=== PATIENT | female | born 1965 | race Two or more races ===

== ENCOUNTER 2016-11-25 13:36 | Emergency (ER) | payer SELFPAY ==
[2016-11-25] MEDS ORDERED: CLONIDINE HCL 0.1 MG TABLET PO ONE (14:04)
[2016-11-25] MEDS ORDERED: ONDANSETRON 4 MG TAB.RAPDIS PO ONE (14:04)
--- NOTE | 2016-11-25 14:04 | ER Document Report ---
ED Medical Screen (RME) - General Chief Complaint: Headache Stated Complaint: HEADACHE Time Seen by Provider: 11/25/16 14:03 Notes: Patient says that she has had a headache since 3 AM this morning. It awakened her from sleep. She had some sudden dizziness as well. Since then she has had nausea and is vomited about 20 times. Patient has a history of high blood pressure, but has been out of her medications for over a month. TRAVEL OUTSIDE OF THE U.S. IN LAST 30 DAYS: No - Related Data Allergies/Adverse Reactions: No Known Allergies Allergy (Unverified 11/25/16 13:45) Past Medical History - Social History Chew tobacco use (# tins/day): No Frequency of alcohol use: None Drug Abuse: None - Past Medical History Cardiac Medical History: Reports: Hx Hypertension Renal/ Medical History: Denies: Hx Peritoneal Dialysis Past Surgical History: Reports: Hx Appendectomy Physical Exam - Vital signs Vitals: Temp Pulse Resp BP Pulse Ox 99.2 F 100 18 153/103 H 98 11/25/16 13:45 11/25/16 13:45 11/25/16 13:45 11/25/16 13:45 11/25/16 13:45 Course - Vital Signs Vital signs: Temp Pulse Resp BP Pulse Ox 99.2 F 100 18 153/103 H 98 11/25/16 13:45 11/25/16 13:45 11/25/16 13:45 11/25/16 13:45 11/25/16 13:45
[2016-11-25 14:34] LABS: ABSOLUTE LYMPHOCYTES (AUTO) 1.4 10^3/uL (0.5-4.7); ABSOLUTE MONOCYTES (AUTO) 0.5 10^3/uL (0.1-1.4); ABSOLUTE NEUT (AUTO) 4.1 10^3/uL (1.7-8.2); BASOPHILS % (AUTO) 0.7 % (0-2); HEMATOCRIT 41.1 % (36.0-47.0); HEMOGLOBIN 14.4 g/dL (12.0-15.5); HGB HCT DIFFERENCE 2.1; LYMPHOCYTES % (AUTO) 22.8 % (13-45); MEAN CORPUSCULAR HEMOGLOBIN 32.9 pg (27.0-33.4); MEAN CORPUSCULAR HGB CONC 34.9 g/dL (32.0-36.0); MEAN CORPUSCULAR VOLUME 94 fl (80-97); MONOCYTES % (AUTO) 8.4 % (3-13); RED BLOOD COUNT 4.37 10^6/uL (3.72-5.28); RED CELL DISTRIBUTION WIDTH 13.4 % (11.5-14.0); SEGMENTED NEUTROPHILS % (AUTO) 68.1 % (42-78)
[2016-11-25 14:39] LABS: ALANINE AMINOTRANSFERASE 147 U/L (9-52); ALBUMIN 5.2 g/dL (3.5-5.0); ALKALINE PHOSPHATASE 114 U/L (38-126); ANION GAP 13 (5-19); ASPARTATE AMINO TRANSFERASE 302 U/L (14-36); BILIRUBIN,DIRECT 0.5 mg/dL (0.0-0.4); BILIRUBIN,TOTAL 2.1 mg/dL (0.2-1.3); BLOOD UREA NITROGEN 12 mg/dL (7-20); CARBON DIOXIDE 27 mmol/L (22-30); CHLORIDE 103 mmol/L (98-107); CREATININE RESULT 0.56 mg/dL (0.52-1.25); GLUCOSE 131 mg/dL (75-110); POTASSIUM 3.7 mmol/L (3.6-5.0); SODIUM 143.2 mmol/L (137-145); TOTAL PROTEIN 8.6 g/dL (6.3-8.2)
[2016-11-25 14:49] LABS: APPEARANCE,URINE SLIGHTLY-CLOUDY; BILIRUBIN,URINE SMALL (NEGATIVE); GLUCOSE, URINE NEGATIVE (NEGATIVE); KETONES,URINE TRACE mg/dL (NEGATIVE); LEUKOCYTE ESTERASE,URINE NEGATIVE (NEGATIVE); NITRITE,URINE NEGATIVE (NEGATIVE); PROTEIN,URINE >=500 mg/dL (NEGATIVE); URINE SPECIFIC GRAVITY 1.027; UROBILINOGEN,URINE NEGATIVE mg/dL (<2.0)
--- NOTE | 2016-11-25 14:50 | RADIOLOGY REPORT (SQ) ---
EXAM DESCRIPTION: CT HEAD WITHOUT COMPLETED DATE/TIME: 11/25/2016 2:33 pm REASON FOR STUDY: Headache and high blood pressure COMPARISON: None. TECHNIQUE: Axial images acquired through the brain without intravenous contrast. Images reviewed wi th bone, brain and subdural windows. Images stored on PACS. All CT scanners at this facility use dose modulation, iterative reconstruction, and/or weight based d osing when appropriate to reduce radiation dose to as low as reasonably achievable (ALARA). [facility]: Dose Right [facility]: CareDose [facility]: Dose Right [facility]: Teradose 4D [facility]: Smart [employer] Mobile RADIATION DOSE: Up-to-date CT equipment and radiation dose reduction techniques were employed. CTDIv ol: 64.6 mGy. DLP: 1034 mGy-cm. mGy. LIMITATIONS: Mild motion artifact FINDINGS: VENTRICLES: Normal size and contour. CEREBRUM: No masses. No hemorrhage. No midline shift. Normal heredia/white matter differentiation. N o evidence for acute infarction. CEREBELLUM: No masses. No hemorrhage. No alteration of density. No evidence for acute infarction. EXTRAAXIAL SPACES: No fluid collections. No masses. ORBITS AND GLOBE: No intra- or extraconal masses. Normal contour of globe without masses. CALVARIUM: No fracture. PARANASAL SINUSES: No fluid or mucosal thickening. SOFT TISSUES: No mass or hematoma. OTHER: No other significant finding. IMPRESSION: NORMAL BRAIN CT WITHOUT CONTRAST. TECHNICAL DOCUMENTATION: JOB ID: [id number] Quality ID # [id number]: Final reports with documentation of one or more dose reduction techniques (e.g., Au tomated exposure control, adjustment of the mA and/or kV according to patient size, use of iterative reconstruction technique) 2010 [employer]- All Rights Reserved
--- NOTE | 2016-11-25 15:27 | ER Document Report ---
ED General - General Mode of Arrival: Ambulatory Information source: Patient TRAVEL OUTSIDE OF THE U.S. IN LAST 30 DAYS: No - HPI Onset: This morning Associated symptoms: Other - see above <BRI BEYER - Last Filed: 11/25/16 16:29> <AIYANA MA - Last Filed: 11/25/16 19:21> - General Chief Complaint: Headache Stated Complaint: HEADACHE Time Seen by Provider: 11/25/16 14:03 Notes: Patient is a 51 year old female who presents to the ED with complaints of a headache, dizziness and shaking with onset 0300 this morning. Patient has had intermittent nausea and vomiting. Patient states she still has a headache but it is improved and very light but she is still dizzy when she moved her head too quickly. Patient denies a recent cough or congestion. (BRI BEYER) - Related Data Allergies/Adverse Reactions: No Known Allergies Allergy (Unverified 11/25/16 13:45) Past Medical History - General Information source: Patient - Social History Smoking Status: Current Every Day Smoker Chew tobacco use (# tins/day): No Frequency of alcohol use: None Drug Abuse: None Family History: Reviewed & Not Pertinent Patient has suicidal ideation: No Patient has homicidal ideation: No - Past Medical History Cardiac Medical History: Reports: Hx Hypertension Renal/ Medical History: Denies: Hx Peritoneal Dialysis Past Surgical History: Reports: Hx Appendectomy <BRI BEYER - Last Filed: 11/25/16 16:29> Review of Systems - Review of Systems Constitutional: No symptoms reported EENT: See HPI. denies: Nose congestion Cardiovascular: See HPI, Dizziness Respiratory: See HPI. denies: Cough Gastrointestinal: See HPI, Nausea, Vomiting Genitourinary: No symptoms reported Female Genitourinary: No symptoms reported Musculoskeletal: No symptoms reported Skin: No symptoms reported Hematologic/Lymphatic: No symptoms reported Neurological/Psychological: See HPI, Headaches <BRI BEYER - Last Filed: 11/25/16 16:29> Physical Exam - Vital signs Interpretation: Hypertensive - General General appearance: Appears well, Alert In distress: None - HEENT Head: Normocephalic, Atraumatic Eyes: Normal Extraocular movements intact: Yes Pupils: PERRL - Respiratory Respiratory status: No respiratory distress Breath sounds: Wheezing - Cardiovascular Rhythm: Regular Heart sounds: Normal auscultation Murmur: No - Abdominal Inspection: Normal Distension: No distension Tenderness: Nontender - Back Back: Normal - Extremities General upper extremity: Normal inspection, Normal ROM General lower extremity: Normal inspection, Normal ROM - Neurological Neuro grossly intact: Yes - Psychological Associated symptoms: Normal affect, Normal mood - Skin Skin Temperature: Warm Skin Moisture: Dry Skin Color: Normal <BRI BEYER - Last Filed: 11/25/16 16:29> Course - Laboratory Result Diagrams: 11/25/16 14:10 11/25/16 14:10 <BRI BEYER - Last Filed: 11/25/16 16:29> - Laboratory Result Diagrams: 11/25/16 14:10 11/25/16 14:10 <AIYANA MA - Last Filed: 11/25/16 19:21> - Re-evaluation Re-evalutation: 11/25/16 16:30 After further speaking with the patient, she states that last night she drank and entire bottle of Nyquil because she was unable to sleep. Patient sates she has not drank any alcohol since March. 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 (BRI BEYER) 11/25/16 Patient has no further headache at this time. Symptoms are concerning for alcohol withdrawal. Patient denies any alcohol use since April. Patient does state that she drank a bottle of NyQuil throughout the course of the day yesterday as she was trying to sleep. No acute findings on CT. Patient did not likely discuss results with daughter and I have not. Patient is to follow- up with her doctor. Return if any worsening or concerning symptoms. (AIYANA MA) - Vital Signs Vital signs: Temp Pulse Resp BP Pulse Ox 98.1 F 79 14 150/98 H 98 11/25/16 15:47 11/25/16 15:47 11/25/16 15:47 11/25/16 15:47 11/25/16 15:47 - Laboratory Laboratory results interpreted by me: 11/25/16 11/25/16 14:10 14:28 Glucose 131 H Total Bilirubin 2.1 H Direct Bilirubin 0.5 H AST 302 H ALT 147 H Total Protein 8.6 H Albumin 5.2 H Urine Protein >=500 H Urine Ketones TRACE H Urine Bilirubin SMALL H Discharge <BRI BEYER - Last Filed: 11/25/16 16:29> <AIYANA MA - Last Filed: 11/25/16 19:21> - Discharge Clinical Impression: Vertigo Headache Qualifiers: Headache type: unspecified Headache chronicity pattern: unspecified pattern Intractability: not intractable Qualified Code(s): R51 - Headache Condition: Stable Disposition: HOME, SELF-CARE Instructions: Headache ([facility]), Vertigo ([facility]) Prescriptions: Diazepam [Valium 2 mg Tablet] 2 mg PO BIDP PRN #15 tablet PRN Reason: Meclizine HCl [Antivert 12.5 mg Tablet] 12.5 mg PO TID #20 tab Ondansetron [Zofran Odt 4 mg Tablet] 1 - 2 tab PO Q4H PRN #15 tab.rapdis PRN Reason: For Nausea/Vomiting Scribe Attestation: 11/25/16 19:21 I personally performed the services described in the documentation, reviewed and edited the documentation which was dictated to the scribe in my presence, and it accurately records my words and actions. (AIYANA MA) Scribe Documentation - Scribe Written by Janeth:: janeth Rodriguez, 11/25/2016, 1540 acting as scribe for :: Jayant <BRI BEYER - Last Filed: 11/25/16 16:29>
[2016-11-25] MEDS ORDERED: DIAZEPAM 2 MG TABLET PO ONE (15:29)
[2016-11-25 16:13] VITALS: BP 150/98
[2016-11-25] MEDS ORDERED: ONDANSETRON ODT 4 MG TAB (6 TAB/DSPK) PO PRN (16:23)
--- NOTE | 2016-11-25 16:36 | RADIOLOGY REPORT (SQ) ---
EXAM DESCRIPTION: CHEST PA/LAT COMPLETED DATE/TIME: 11/25/2016 4:12 pm REASON FOR STUDY: cough COMPARISON: None. EXAM PARAMETERS: NUMBER OF VIEWS: two views TECHNIQUE: Digital Frontal and Lateral radiographic views of the chest acquired. RADIATION DOSE: NA LIMITATIONS: none FINDINGS: LUNGS AND PLEURA: No opacities, masses or pneumothorax. No pleural effusion. MEDIASTINUM AND HILAR STRUCTURES: No masses or contour abnormalities. HEART AND VASCULAR STRUCTURES: Heart normal size. No evidence for failure. BONES: No acute findings. HARDWARE: None in the chest. OTHER: No other significant finding. IMPRESSION: NO SIGNIFICANT RADIOGRAPHIC FINDING IN THE CHEST. TECHNICAL DOCUMENTATION: JOB ID: [id number] [employer]- All Rights Reserved
== END 2016-11-25 17:24 | disposition home or self-care (01) ==
LOC: ER 13:36
DX: R51 Headache (principal); R42 Dizziness and giddiness; R11.2 Nausea with vomiting, unspecified; I10 Essential (primary) hypertension; F17.200 Nicotine dependence, unspecified, uncomplicated
CPT/HCPCS: 99284; 36415; 85025; 80053; 81001; 71020; 70450; J3490; S0119

== ENCOUNTER 2017-07-20 14:39 | Emergency (ER) | payer SELFPAY ==
--- NOTE | 2017-07-20 16:42 | ER Document Report ---
ED General - General Chief Complaint: Dizziness Stated Complaint: BLOOD PRESSURE ISSUES Time Seen by Provider: 07/20/17 16:30 Notes: 52-year-old female here with complaints of dizziness ongoing since yesterday morning. Dizziness is described as room spinning. Symptoms worse with moving her head and looking around. Completely resolved if she keeps her head still. Has no dysphagia dysarthria numbness tingling weakness vision change. Has slight headache but states she has not eaten all day and she ate just prior to arrival here to the ED and headache has much improved. TRAVEL OUTSIDE OF THE [place] IN LAST 30 DAYS: No - Related Data Allergies/Adverse Reactions: No Known Allergies Allergy (Verified 07/20/17 14:43) Past Medical History - Social History Smoking Status: Unknown if Ever Smoked Family History: Reviewed & Not Pertinent - Past Medical History Cardiac Medical History: Reports: Hx Hypertension Renal/ Medical History: Denies: Hx Peritoneal Dialysis Past Surgical History: Reports: Hx Appendectomy Review of Systems - Review of Systems Notes: See history of present illness for pertinent positive review of systems; otherwise all review of systems have been reviewed and are negative Physical Exam - Vital signs Vitals: Temp Pulse Resp BP Pulse Ox 98.4 F 74 16 165/90 H 99 07/20/17 15:04 07/20/17 15:04 07/20/17 15:04 07/20/17 15:04 07/20/17 15:04 - Notes Notes: PHYSICAL EXAMINATION: GENERAL: Well-appearing and in no acute distress. HEAD: Atraumatic, normocephalic. EYES: Pupils equal round and reactive to light, extraocular movements intact, sclera anicteric, conjunctiva are normal. ENT: nares patent, oropharynx clear without exudates. Moist mucous membranes. NECK: Normal range of motion, supple without lymphadenopathy LUNGS: CTAB and equal. No wheezes rales or rhonchi. HEART: Regular rate and rhythm without murmurs ABDOMEN: Soft, no tenderness. No guarding, no rebound EXTREMITIES: Normal range of motion, no pitting edema. No cyanosis. NEUROLOGICAL: Cranial nerves grossly intact. Normal sensory/motor exams. Neg HINTS exam PSYCH: Normal mood, normal affect. SKIN: Warm, Dry, normal turgor, no rashes or lesions noted Course - Re-evaluation Re-evalutation: 07/20/17 16:42 MEDICAL DECISION MAKING: Concern for peripheral vertigo, given history and exam Will give prescription for meclizine and refill of her previous atenolol She declines dose of medications here Patient understands and agrees to the plan of care - Vital Signs Vital signs: Temp Pulse Resp BP Pulse Ox 98.4 F 74 16 165/90 H 99 07/20/17 15:04 07/20/17 15:04 07/20/17 15:04 07/20/17 15:04 07/20/17 15:04 Discharge - Discharge Clinical Impression: Dizziness Condition: Good Disposition: HOME, SELF-CARE Additional Instructions: Please use the prescribed medications as directed. You were seen in the emergency department at [facility]. If you were given any sedating medications, be sure not to operate heavy machinery (example - driving ) and be sure you are not too sedated to walk appropriately. Please followup with your primary physician in the next few days for further management/ evaluation. Please return to the emergency department for worsening of symptoms or any symptom that you deem to be concerning or life-threatening. Thank you for allowing us to be part of your care. Prescriptions: Atenolol [Tenormin] 25 mg PO DAILY #14 tablet Meclizine HCl [Antivert 12.5 mg Tablet] 12.5 mg PO TID #20 tab
[2017-07-20 16:49] VITALS: BP 174/96
== END 2017-07-20 16:49 | disposition home or self-care (01) ==
LOC: ER 14:39
DX: R42 Dizziness and giddiness (principal); I10 Essential (primary) hypertension
CPT/HCPCS: 99283

== ENCOUNTER 2017-08-01 | Emergency (ER) | payer SELFPAY ==
--- NOTE | 2017-08-01 17:13 | ER Document Report ---
HPI - HPI Pain Level: Denies Notes: Patient is a 52-year-old female who presents with request to have her blood pressure medication filled. Patient states that she takes atenolol 25 mg daily and had her last dose this morning. Patient reports that she already has an appointment set up for August 17 with the [facility]. Patient denies any symptoms currently reports that she is feeling well. Patient reports past medical history of hypertension and kidney problems when she was . Patient reports that she smokes cigarettes daily but denies use of any alcohol or recreational drugs. Past Medical History - General Information source: Patient - Social History Smoking Status: Current Some Day Smoker Frequency of alcohol use: None Drug Abuse: None Lives with: Family Family History: Reviewed & Not Pertinent - Past Medical History Cardiac Medical History: Reports: Hx Hypertension Renal/ Medical History: Denies: Hx Peritoneal Dialysis Past Surgical History: Reports: Hx Appendectomy Vertical Provider Document - INFECTION CONTROL TRAVEL OUTSIDE OF THE U.S. IN LAST 30 DAYS: No - HEENT HEENT: Atraumatic - NECK Neck: Normal Inspection - RESPIRATORY Respiratory: Breath Sounds Normal - CARDIOVASCULAR Cardiovascular: Regular Rate, Regular Rhythm Pulses: Bounding: Radial - GI/ABDOMEN Gastrointestinal: Abdomen Non-Tender - NEURO Level of Consciousness: Awake - DERM Integumentary: Warm, Dry, No Rash Course - Re-evaluation Re-evalutation: Patient has preestablished appointment on August 17 for primary care follow-up with [facility]. Will refill blood pressure medication today. Patient denies any symptoms and verbalizes understanding of need for routine follow-up care. - Vital Signs Vital signs: Temp Pulse Resp BP Pulse Ox 98.4 F 75 16 120/77 95 08/01/17 16:38 08/01/17 16:38 08/01/17 16:38 08/01/17 16:38 08/01/17 16:38 Discharge - Discharge Clinical Impression: Medication refill Condition: Stable Disposition: HOME, SELF-CARE Additional Instructions: Please take the atenolol as prescribed. Keep your follow-up appointment with the [facility]. Return to the emergency department if you develop any concerning symptoms such as severe headache. Prescriptions: Atenolol [Tenormin] 25 mg PO DAILY #30 tablet Referrals: [facility] [Provider Group] - Follow up as needed
== END 2017-08-01 17:20 | disposition home or self-care (01) ==
DX: I10 Essential (primary) hypertension (principal)
CPT/HCPCS: 99281

== ENCOUNTER → 2018-05-02 | Outpatient (CLI) | payer OTHER ==
[2018-05-02 09:23] LABS: ABSOLUTE LYMPHOCYTES (AUTO) 2.1 10^3/uL (0.5-4.7); ABSOLUTE MONOCYTES (AUTO) 0.5 10^3/uL (0.1-1.4); ABSOLUTE NEUT (AUTO) 5.4 10^3/uL (1.7-8.2); BASOPHILS % (AUTO) 0.3 % (0-2); HEMATOCRIT 40.6 % (36.0-47.0); LYMPHOCYTES % (AUTO) 25.9 % (13-45); MEAN CORPUSCULAR HEMOGLOBIN 31.9 pg (27.0-33.4); MEAN CORPUSCULAR HGB CONC 34.6 g/dL (32.0-36.0); MEAN CORPUSCULAR VOLUME 92 fl (80-97); MONOCYTES % (AUTO) 5.7 % (3-13); PLATELET COUNT 357 10^3/uL (150-450); RED BLOOD COUNT 4.39 10^6/uL (3.72-5.28); RED CELL DISTRIBUTION WIDTH 12.8 % (11.5-14.0); SEGMENTED NEUTROPHILS % (AUTO) 68.1 % (42-78); TOTAL CELLS COUNTED % (AUTO) 100 %
[2018-05-02 09:53] LABS: ALANINE AMINOTRANSFERASE 35 U/L (9-52); ALBUMIN 4.6 g/dL (3.5-5.0); ALKALINE PHOSPHATASE 73 U/L (38-126); ANION GAP 7 (5-19); ASPARTATE AMINO TRANSFERASE 39 U/L (14-36); BILIRUBIN,DIRECT 0.2 mg/dL (0.0-0.4); BILIRUBIN,TOTAL 0.4 mg/dL (0.2-1.3); BLOOD UREA NITROGEN 12 mg/dL (7-20); CALCIUM 9.6 mg/dL (8.4-10.2); CARBON DIOXIDE 27 mmol/L (22-30); CHLORIDE 110 mmol/L (98-107); CHOLESTEROL 304.94 mg/dL (0-200); GLUCOSE 106 mg/dL (75-110); POTASSIUM 4.2 mmol/L (3.6-5.0); SODIUM 144.3 mmol/L (137-145); TOTAL PROTEIN 7.3 g/dL (6.3-8.2)
[2018-05-02 10:05] LABS: DIRECT LDL 144 mg/dL (<100)
[2018-05-02 10:09] LABS: TRIGLYCERIDES 655 mg/dL (<150)
== END ==
LOC: CCC 08:22
DX: Z00.00 Encounter for general adult medical examination without abnormal findings (principal)
CPT/HCPCS: 36415; 80053; 80061; 83036; 84443; 85025

== ENCOUNTER 2018-08-27 21:42 | Emergency (ER) | payer SELFPAY ==
[2018-08-27 23:05] LABS: ABSOLUTE BASOPHILS # (AUTO) 0.1 10^3/uL (0.0-0.2); ABSOLUTE LYMPHOCYTES (AUTO) 4.2 10^3/uL (0.5-4.7); ABSOLUTE MONOCYTES (AUTO) 0.6 10^3/uL (0.1-1.4); ABSOLUTE NEUT (AUTO) 4.2 10^3/uL (1.7-8.2); BASOPHILS % (AUTO) 0.6 % (0-2); HEMATOCRIT 43.2 % (36.0-47.0); HEMOGLOBIN 14.9 g/dL (12.0-15.5); LYMPHOCYTES % (AUTO) 46.6 % (13-45); MEAN CORPUSCULAR HEMOGLOBIN 31.2 pg (27.0-33.4); MEAN CORPUSCULAR HGB CONC 34.4 g/dL (32.0-36.0); MEAN CORPUSCULAR VOLUME 91 fl (80-97); MONOCYTES % (AUTO) 6.6 % (3-13); PLATELET COUNT 292 10^3/uL (150-450); RED BLOOD COUNT 4.77 10^6/uL (3.72-5.28); RED CELL DISTRIBUTION WIDTH 12.8 % (11.5-14.0); SEGMENTED NEUTROPHILS % (AUTO) 46.2 % (42-78); TOTAL CELLS COUNTED % (AUTO) 100 %; WHITE BLOOD COUNT 9.1 10^3/uL (4.0-10.5)
--- NOTE | 2018-08-27 23:10 | ER Document Report ---
ED General - General Chief Complaint: Suicidal Ideation Stated Complaint: IVC Time Seen by Provider: 08/27/18 22:21 Primary Care Provider: [facility] [Primary Care Provider] - Follow up as needed Cannot obtain history due to: Uncooperative, Altered mental status Notes: Patient is a 53-year-old female who presents on an involuntary commitment from the community via police after expressing to coworkers that she was going to take extra sleeping medicine to go to sleep and not wake up. The patient does wake briefly to speak to me and tell me her name but does not provide any a dditional details. She refuses to participate in history taking. No further HPI can therefore be obtained. TRAVEL OUTSIDE OF THE [place]. IN LAST 30 DAYS: No - Related Data Allergies/Adverse Reactions: No Known Allergies Allergy (Verified 08/27/18 22:23) Past Medical History - General Information source: Transfer Record, Outside Facility Records Cannot obtain history due to: Uncooperative, Altered mental status - Social History Smoking Status: Unknown if Ever Smoked Frequency of alcohol use: Occasional Drug Abuse: None Lives with: Alone Family History: Reviewed & Not Pertinent Patient has suicidal ideation: Yes Patient has homicidal ideation: No - Past Medical History Cardiac Medical History: Reports: Hx Hypertension Renal/ Medical History: Denies: Hx Peritoneal Dialysis Psychiatric Medical History: Reports: Hx Bipolar Disorder Past Surgical History: Reports: Hx Appendectomy Review of Systems - Review of Systems -: Yes ROS unobtainable due to patient's medical condition Physical Exam - Vital signs Vitals: Pulse 111 H 08/27/18 21:43 Interpretation: Tachycardic - Resolved at the time of my assessment with a heart rate of 97 Notes: PHYSICAL EXAMINATION: GENERAL: Somnolent but wakes to loud voice. Appears somewhat sedated HEAD: Atraumatic, normocephalic. EYES: Pupils equal round and reactive to light, extraocular movements intact, sclera anicteric, conjunctiva are normal. ENT: nares patent, oropharynx clear without exudates. Moist mucous membranes. NECK: Normal range of motion, supple without lymphadenopathy LUNGS: Breath sounds clear to auscultation bilaterally and equal. No wheezes rales or rhonchi. HEART: Regular rate and rhythm without murmurs ABDOMEN: Soft, nontender, normoactive bowel sounds. No guarding, no rebound. No masses appreciated. EXTREMITIES: Normal range of motion, no pitting or edema. No cyanosis. NEUROLOGICAL: No focal neurological deficits. Moves all extremities spontane ously and on command. PSYCH: Sedated, somnolent but does respond to loud voice SKIN: Warm, Dry, normal turgor, no rashes or lesions noted. Course - Re-evaluation Re-evalutation: 08/27/18 23:09 Patient presents with reports to coworkers that she was going to take extra sleeping medicine and attempt to self-harm. The patient does not engage with me on history taking attempts and no history can be obtained beyond what is reporte d on the IVC affidavit. The patient denied any acute physical concerns when I assessed her. She has no findings on physical exam. Medical screening labs are pending. She is otherwise cleared for evaluation and disposition by [facility]. 08/28/18 03:19 Laboratories developed elevated EtOH level otherwise unremarkable. Patient is cleared for evaluation and disposition by [facility] in the morning. - Vital Signs Vital signs: Temp Pulse Resp BP Pulse Ox 98.4 F 111 H 18 158/99 H 100 08/27/18 21:50 08/27/18 21:50 08/27/18 21:50 08/27/18 21:50 08/27/18 21:50 - Laboratory Result Diagrams: 08/27/18 22:50 08/27/18 22:50 Laboratory results interpreted by me: 08/27/18 08/27/18 22:50 22:50 Lymphocytes % 46.6 H Sodium 147.4 H Chloride 108 H AST 133 H ALT 74 H Salicylates < 1.0 L Acetaminophen < 10 L - EKG Interpretation by Me Additional EKG results interpreted by me: 08/27/18 23:10 Sinus rhythm, rate 87. No ST elevations or depressions. QTC is 486. Discharge - Discharge Clinical Impression: Threatening suicide Medication overdose Qualifiers: Encounter type: initial encounter Injury intent: undetermined intent Qualified Code(s): T50.904A - Poisoning by unspecified drugs, medicaments and biological substances, undetermined, initial encounter Alcohol intoxication Qualifiers: Complication of substance-induced condition: uncomplicated Qualified Code(s): F10.920 - Alcohol use, unspecified with intoxication, uncomplicated Condition: Fair Disposition: PSYCH HOSP/UNIT [facility] [Primary Care Provider] - Follow up as needed
[2018-08-27 23:24] LABS: ALANINE AMINOTRANSFERASE 74 U/L (9-52); ALBUMIN 4.5 g/dL (3.5-5.0); ALCOHOL 297 mg/dL (NONE DETECTED); ALKALINE PHOSPHATASE 83 U/L (38-126); ANION GAP 10 (5-19); ASPARTATE AMINO TRANSFERASE 133 U/L (14-36); BILIRUBIN,DIRECT 0.3 mg/dL (0.0-0.4); BILIRUBIN,TOTAL 0.8 mg/dL (0.2-1.3); BLOOD UREA NITROGEN 9 mg/dL (7-20); CALCIUM 9.2 mg/dL (8.4-10.2); CARBON DIOXIDE 29 mmol/L (22-30); CHLORIDE 108 mmol/L (98-107); GLUCOSE 109 mg/dL (75-110); POTASSIUM 3.9 mmol/L (3.6-5.0); SODIUM 147.4 mmol/L (137-145); TOTAL PROTEIN 7.7 g/dL (6.3-8.2)
[2018-08-27 23:25] LABS: ACETAMINOPHEN < 10 ug/mL (10-30); SALICYLATE < 1.0 mg/dL (2.0-20.0)
--- NOTE | 2018-08-27 23:49 | EKG REPORT ---
SEVERITY:- BORDERLINE ECG - SINUS RHYTHM BORDERLINE PROLONGED QT INTERVAL : Confirmed by: Macey Ly MD 27-Aug-2018 23:48:58
[2018-08-28] MEDS ORDERED: ACETAMINOPHEN 325 MG TABLET PO ONE (06:23)
[2018-08-28 06:32] LABS: APPEARANCE,URINE SLIGHTLY-CLOUDY; BILIRUBIN,URINE NEGATIVE (NEGATIVE); COLOR,URINE YELLOW; GLUCOSE, URINE NEGATIVE (NEGATIVE); KETONES,URINE NEGATIVE (NEGATIVE); LEUKOCYTE ESTERASE,URINE SMALL (NEGATIVE); NITRITE,URINE NEGATIVE (NEGATIVE); PROTEIN,URINE NEGATIVE (NEGATIVE); URINE SPECIFIC GRAVITY 1.019; UROBILINOGEN,URINE NEGATIVE mg/dL (<2.0)
[2018-08-28 06:46] LABS: URINE AMPHETAMINES SCREEN NEGATIVE; URINE BARBITURATES SCREEN NEGATIVE; URINE BENZODIAZEPINES SCREEN NEGATIVE; URINE COCAINE SCREEN NEGATIVE; URINE MARIJUANA (THC) SCREEN NEGATIVE; URINE METHADONE SCREEN NEGATIVE; URINE PHENCYCLIDINE SCREEN NEGATIVE
--- NOTE | 2018-08-28 09:01 | PSYCHOLOGICAL NOTE ---
Psych Note - Psych Note Date seen by psych provider: 08/28/18 Time seen by psych provider: 07:30 - 0740 Psych Note: Reason for Consult: IVC Patient is a 53-year-old female who presents on an involuntary commitment from the community via police after expressing to coworkers that she was going to take extra sleeping medicine to go to sleep and not wake up. Patient reports that she is at [facility] because "I was being stupid I guess... cannot put it any other way." She reports that she was diagnosed bipolar approximately 8 years ago however has not been on medications for "a while." She states that she has been having difficulty sleeping and gets very frustrated. She states that she seems to wake up about 1:30 in the morning and then ends up staying awake because she cannot fall back asleep. She denies having any inpatient psychiatric treatment or having any outpatient mental health providers. She states that she used to have a psychiatrist while living in [place] however he prescribed Xanax and she did not like the way it made her feel. She states that she has been drinking a lot for the last 5 days however prior to that she had not had a drink in over a year. She denies significant if issues with alcohol stating that while she did go to detox approximately 4 to 5 years ago she is never gone through treatment. She reports that normally she does not drink and that she is going through these events where she cannot sleep. She reports that she then drinks, takes her sleeping pills, and has to take Z quill in order to be able to sleep at all. Patient reports that she did not reach out to her coworkers that they "kept calling me nonstop... So I finally called back." She reports that she just wanted to be left alone. She confirms she made suicidal comments to her coworker. She reports that they came to her home and was banging on the door but again she did not answer because she just wanted to be left alone. When asked if she wanted to , clinician notes significant pause before patient responded "I do not know what I want anymore." Patient is alert and orientated to person, place, time and circumstance. Mood is dysphoric with flat affect. Patient endorses suicidal ideation with reported plan of overdosing on her sleeping medication. Patient denies homicidal ideation. Delusions are absent behaviors congruent with intact reality based presentation I organized and linear thought process. Eye contact was poor. Conversational speech was within normal rate, tone and prosody. Intellectual abilities appear to be within the average range. Attention and concentration are good. Insight, judgment, impulse control is poor. 296.80 (F31.9) unspecified bipolar and related disorder per history provided by patient Impression\\plan: Patient is recommended to continue under IVC. Patient presented on IVC paperwork with concerns of suicidal ideation with plan. Patient reports having a bipolar diagnosis which she has not been taking medications for. Patient has been self-medicating with alcohol during recent hypomanic event. Patient continues to present very dysphoric with flat affect. Patient is unable to answer if she wants to live. Patient was accepted to [facility]; transportation was requested. Dr. Mc was consulted to care management of this patient; attending physicians in agreement with recommendations and disposition.
--- NOTE | 2018-08-28 09:14 | ER Document Report ---
Doctor's Note Notes: 08/28/18 09:46 Patient seen and examined, vital signs reviewed, patient is somewhat of a dysphoric mood today, she makes poor eye contact, and has a flat affect, is unable to appropriately answer whether she wants to harm her self, or if she wants to live, she pauses, and states that she does not know what she wants. At this point after discussing with behavioral health team, we will look for placement for the patient inpatient psychiatric facility, for acute therapy, and likely new medications, to stabilize the patient's mood. Patient seemed agreeable to this plan of care.
[2018-08-28] MEDS ORDERED: ATENOLOL 50 MG TABLET PO SCH (10:00)
[2018-08-28] MEDS ORDERED: (PENDING PHARMACY ID) (Atenolol [Tenormin] 50 MG) PO SCH (10:00)
[2018-08-28] MEDS ORDERED: IBUPROFEN 600 MG TABLET PO ONE (10:26)
[2018-08-28 12:09] VITALS: BP 184/99
== END 2018-08-28 12:38 ==
LOC: ER 21:42
DX: T50.904A Poisoning by unspecified drugs, medicaments and biological substances, undetermined, initial encounter (principal); R45.851 Suicidal ideations; F10.120 Alcohol abuse with intoxication, uncomplicated; I10 Essential (primary) hypertension
CPT/HCPCS: 36415; 80053; 80307; 81001; 85025; 93005; 93010; 99285

== ENCOUNTER 2019-04-13 21:38 | Emergency (ER) | payer SELFPAY ==
[2019-04-13 21:53] VITALS: BP 191/106
--- NOTE | 2019-04-13 22:36 | ER Document Report ---
ED Medical Screen (RME) - General Chief Complaint: High Blood Pressure Stated Complaint: REPORTS HIGH BLOOD PRESSURE Time Seen by Provider: 04/13/19 22:34 Primary Care Provider: PRESTON WARD,MARK [Primary Care Provider] - Follow up as needed Notes: Patient is a 54-year-old female with a history of hypertension who presents emergency department with a chief complaint of high blood pressure and headache. Patient reports she has been out of her clonidine for 4 days. Patient reports her normal dosage is 0.1 mg 3 times daily. Patient reports that she did not realize she had a refill and thought she was out. Patient reports she also takes atenolol 25 mg daily. Patient reports she did take an extra half of the dose today because she knew her blood pressure was elevated. Patient reports last night she did develop some shortness of breath and chest pressure that has been intermittent. Patient reports today around 4 PM she did have some difficulty speaking and getting her words out. Patient reports she does have a headache. Patient denies use of blood thinners. TRAVEL OUTSIDE OF THE [place] IN LAST 30 DAYS: No - Related Data Allergies/Adverse Reactions: No Known Allergies Allergy (Verified 04/13/19 22:25) Home Medications: clonidine 0.1mg, atenolol 50 mg, carbamazepine 200 mg, quetipaine 100 mg Past Medical History - Social History Chew tobacco use (# tins/day): No Frequency of alcohol use: Occasional Drug Abuse: None - Past Medical History Cardiac Medical History: Reports: Hx Hypertension Renal/ Medical History: Denies: Hx Peritoneal Dialysis Psychiatric Medical History: Reports: Hx Bipolar Disorder Past Surgical History: Reports: Hx Appendectomy Physical Exam - Vital signs Vitals: Temp Pulse Resp BP Pulse Ox 98.1 F 71 18 191/106 H 99 04/13/19 21:52 04/13/19 21:52 04/13/19 21:52 04/13/19 21:52 04/13/19 21:52 Course - Re-evaluation Re-evalutation: 04/13/19 22:36 Patient hypertensive in triage. Will go ahead and initiate blood work and EKG. I have greeted and performed a rapid initial assessment of this patient. A comprehensive ED assessment and evaluation of the patient, analysis of test results and completion of the medical decision making process will be conducted by additional ED providers. - Vital Signs Vital signs: Temp Pulse Resp BP Pulse Ox 98.1 F 71 18 191/106 H 99 04/13/19 21:52 04/13/19 21:52 04/13/19 21:52 04/13/19 21:52 04/13/19 21:52 Doctor's Discharge - Discharge Referrals: [facility] [Primary Care Provider] - Follow up as needed
[2019-04-13 23:06] LABS: ABSOLUTE LYMPHOCYTES (AUTO) 1.9 10^3/uL (0.5-4.7); ABSOLUTE MONOCYTES (AUTO) 0.4 10^3/uL (0.1-1.4); ABSOLUTE NEUT (AUTO) 4.4 10^3/uL (1.7-8.2); BASOPHILS % (AUTO) 0.3 % (0-2); HEMATOCRIT 41.3 % (36.0-47.0); HEMOGLOBIN 14.7 g/dL (12.0-15.5); LYMPHOCYTES % (AUTO) 28.4 % (13-45); MEAN CORPUSCULAR HEMOGLOBIN 33.5 pg (27.0-33.4); MEAN CORPUSCULAR HGB CONC 35.7 g/dL (32.0-36.0); MEAN CORPUSCULAR VOLUME 94 fl (80-97); MONOCYTES % (AUTO) 6.3 % (3-13); PLATELET COUNT 264 10^3/uL (150-450); RED BLOOD COUNT 4.39 10^6/uL (3.72-5.28); RED CELL DISTRIBUTION WIDTH 13.6 % (11.5-14.0); TOTAL CELLS COUNTED % (AUTO) 100 %; WHITE BLOOD COUNT 6.8 10^3/uL (4.0-10.5)
[2019-04-13 23:24] LABS: ALKALINE PHOSPHATASE 74 U/L (38-126); ANION GAP 13 (5-19); ASPARTATE AMINO TRANSFERASE 100 U/L (14-36); BILIRUBIN,DIRECT 0.3 mg/dL (0.0-0.4); BILIRUBIN,TOTAL 0.8 mg/dL (0.2-1.3); BLOOD UREA NITROGEN 7 mg/dL (7-20); CALCIUM 10.1 mg/dL (8.4-10.2); CARBON DIOXIDE 26 mmol/L (22-30); CHLORIDE 101 mmol/L (98-107); GLUCOSE 125 mg/dL (75-110); POTASSIUM 3.7 mmol/L (3.6-5.0); TOTAL PROTEIN 8.5 g/dL (6.3-8.2)
--- NOTE | 2019-04-13 23:30 | RADIOLOGY REPORT (SQ) ---
CLINICAL HISTORY: difficulty with speech 4 pm today, htn COMPARISON: 11/25/2016. 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 FINDINGS: There is no acute hemorrhage, mass effect or midline shift. Medina-white differentiation is preserved. There is no hydrocephalus. There is no significant volume loss for age. The calvarium is intact. Orbits and globes are unremarkable. The paranasal sinuses are clear. Mastoid air cells are clear. IMPRESSION: No acute intracranial findings.
--- NOTE | 2019-04-13 23:32 | RADIOLOGY REPORT (SQ) ---
EXAM DESCRIPTION: XR CHEST 2 VIEWS COMPLETED DATE/TME: 04/13/2019 22:34 CLINICAL HISTORY: 54 years, Female, chest pressure COMPARISON: 11/25/2016 chest NUMBER OF VIEWS: 2 TECHNIQUE: 2 views of the chest LIMITATIONS: None. FINDINGS: Heart size is normal. Minimal blunting of the costophrenic angles seen on the lateral view suggesting tiny effusions and/or pleural thickening. Lungs are otherwise clear.. No pneumothorax IMPRESSION: Tiny effusions and/or pleural thickening suggested on the lateral view. Lungs are otherwise clear copyright 2011 [employer]- All Rights Reserved
--- NOTE | 2019-04-14 13:49 | EKG REPORT ---
SEVERITY:- ABNORMAL ECG - SINUS RHYTHM PROBABLE LEFT ATRIAL ABNORMALITY PROBABLE ANTEROSEPTAL INFARCT, AGE INDETERM : Confirmed by: Macey Ly MD 14-Apr-2019 13:48:20
== END 2019-04-14 01:33 | disposition left against medical advice (07) ==
LOC: ER 21:38
DX: I10 Essential (primary) hypertension (principal); T46.5X6A Underdosing of other antihypertensive drugs, initial encounter; Z91.128 Patient's intentional underdosing of medication regimen for other reason; Z91.14 Patient's other noncompliance with medication regimen; R51 Headache; R06.02 Shortness of breath; R07.89 Other chest pain; F31.9 Bipolar disorder, unspecified; Z79.899 Other long term (current) drug therapy; Z53.20 Procedure and treatment not carried out because of patient's decision for unspecified reasons
CPT/HCPCS: 36415; 70450; 71046; 80053; 84484; 85025; 93005; 93010; 99281

== ENCOUNTER 2019-04-14 01:44 | Emergency (ER) | payer SELFPAY ==
[2019-04-14] MEDS ORDERED: ACETAMINOPHEN 325 MG TABLET PO ONE (05:46)
[2019-04-14] MEDS ORDERED: CLONIDINE HCL 0.1 MG TABLET PO ONE (06:16)
--- NOTE | 2019-04-14 09:25 | ER Document Report ---
ED Blood Pressure Problem - General Chief Complaint: High Blood Pressure Stated Complaint: BLOOD PRESSURE Time Seen by Provider: 04/14/19 08:45 Primary Care Provider: [facility] [Primary Care Provider] - Follow up as needed Notes: 54-year-old female with history of hypertension presents with elevated blood pressure and headache due to being out of her clonidine for the last 3 days. Patient was given 1 dose of her clonidine with improvement in her blood pressure. Patient had a work-up last night however patient eloped and came back to the ER. Patient denies any chest pain, shortness of breath, visual changes, nausea/vomiting. TRAVEL OUTSIDE OF THE [place] IN LAST 30 DAYS: No - Related Data Allergies/Adverse Reactions: No Known Allergies Allergy (Verified 04/14/19 02:02) Home Medications: Pt refused to give list Past Medical History - Social History Smoking Status: Current Every Day Smoker Chew tobacco use (# tins/day): No Frequency of alcohol use: Occasional Drug Abuse: None Family History: Reviewed & Not Pertinent Patient has suicidal ideation: No Patient has homicidal ideation: No - Past Medical History Cardiac Medical History: Reports: Hx Hypertension Renal/ Medical History: Denies: Hx Peritoneal Dialysis Psychiatric Medical History: Reports: Hx Bipolar Disorder Past Surgical History: Reports: Hx Appendectomy Review of Systems - Review of Systems Notes: Constitutional: Negative for fever. HENT: Negative for sore throat. Eyes: Negative for visual changes. Cardiovascular: Negative for chest pain. Respiratory: Negative for shortness of breath. Gastrointestinal: Negative for abdominal pain, vomiting or diarrhea. Genitourinary: Negative for dysuria. Musculoskeletal: Negative for back pain. Skin: Negative for rash. Neurological: Positive for headaches. Negative for weakness or numbness. 10 point ROS negative except as marked above and in HPI. Physical Exam - Vital signs Vitals: Temp Pulse Resp BP Pulse Ox 98.5 F 69 19 196/111 H 100 04/14/19 01:58 04/14/19 01:58 04/14/19 01:58 04/14/19 01:58 04/14/19 01:58 - Notes Notes: GENERAL: Well-appearing, well-nourished and in no acute distress. HEAD: Atraumatic, normocephalic. EYES: Extraocular movements intact, sclera anicteric, conjunctiva are normal. NECK: Normal range of motion, supple without lymphadenopathy or JVD. LUNGS: Breath sounds clear to auscultation bilaterally and equal. No wheezes rales or rhonchi. HEART: Regular rate and rhythm without murmurs, rubs or gallops. EXTREMITIES: Normal range of motion, no pitting or edema. No clubbing or cyanosis. NEUROLOGICAL: Cranial nerves II through XII grossly intact. Normal speech, normal gait. PSYCH: Normal mood, normal affect. SKIN: Warm, Dry, normal turgor, no rashes or lesions noted. Course - Re-evaluation Re-evalutation: 04/14/19 54-year-old female presents for elevated blood pressure and headache. Patient has been out of her clonidine 0.1 mg for 3 days. Patient had a work-up done last night however patient eloped prior to be seen by provider. Patient was given 1 dose of clonidine 0.1 mg in ER with improvement in her blood pressure. Patient states she has no complaints at this time. Patient states she missed her appointment with her PCP on the and states she will attempt to make an follow-up appointment in the next couple weeks. Reviewed work-up that was done last night which included a CBC, CMP CT of the head and chest x- ray which were all reassuring. Discussed all this with the patient. Strict return precautions given. Follow-up with PCP encouraged. Patient given prescription for clonidine and her atenolol. Patient voices understanding and agrees with plan of care. - Vital Signs Vital signs: Temp Pulse Resp BP Pulse Ox 98.0 F 81 13 119/92 H 98 04/14/19 05:06 04/14/19 05:06 04/14/19 07:01 04/14/19 07:00 04/14/19 07:01 Discharge - Discharge Clinical Impression: Hypertension Qualifiers: Hypertension type: unspecified Qualified Code(s): I10 - Essential (primary) hypertension Condition: Stable Disposition: HOME, SELF-CARE Instructions: High Blood Pressure ([facility]), High Blood Pressure, Requiring Treatment ([facility]) Additional Instructions: It is very important for you to take your blood pressure medicine. Please take your medications as prescribed. Please call your primary care doctor on Tuesday to make a follow-up appointment. Your work-up today was reassuring. Return to ER immediately if you start having any worsening symptoms, including headache, chest pain, visual changes, shortness of breath, fever, neck pain, or any other symptoms that are concerning to you. Prescriptions: Clonidine HCl [Catapres] 0.1 mg PO TID #90 tablet Atenolol [Tenormin] 50 mg PO DAILY #30 tablet Referrals: [facility] [Primary Care Provider] - Follow up in 3-5 days
[2019-04-14 09:38] VITALS: BP 124/101
== END 2019-04-14 09:41 | disposition home or self-care (01) ==
LOC: ER 01:44
DX: I10 Essential (primary) hypertension (principal); R51 Headache; Z79.899 Other long term (current) drug therapy; F17.200 Nicotine dependence, unspecified, uncomplicated
CPT/HCPCS: 99283

== ENCOUNTER → 2020-02-19 | Outpatient (CLI) | payer OTHER ==
[2020-02-19 10:37] LABS: ANION GAP 7 (5-19); BLOOD UREA NITROGEN 21 mg/dL (7-20); CALCIUM 9.9 mg/dL (8.4-10.2); CARBON DIOXIDE 27 mmol/L (22-30); CHLORIDE 105 mmol/L (98-107); GLUCOSE 126 mg/dL (75-110); POTASSIUM 4.9 mmol/L (3.6-5.0)
== END ==
LOC: CCC 09:26
PROVIDERS: ATTEND Family Medicine
DX: Z13.9 Encounter for screening, unspecified (principal)
CPT/HCPCS: 36415; 80048; 83036